=== PATIENT | male | born 1975 | race African-American/Black ===

== ENCOUNTER 2018-12-16 01:43 | Emergency (ER) | payer SELFPAY ==
[2018-12-16] MEDS ORDERED: Ibuprofen 800 MG TAB ONE (02:15)
--- NOTE | 2018-12-16 08:22 | RAD ---
Exam:3 views right shoulder HISTORY: Pain. Injury. COMPARISON: None FINDINGS: The acromioclavicular and coracoclavicular joint spaces are maintained. No fracture or disl ocation. Visualized right ribs are unremarkable. IMPRESSION: No fracture or dislocation.
== END 2018-12-16 02:26 | disposition home or self-care (01) ==
LOC: ERS 01:43
DX: M25.511 Pain in right shoulder (principal); F17.210 Nicotine dependence, cigarettes, uncomplicated; Z71.6 Tobacco abuse counseling
CPT/HCPCS: 99406